=== PATIENT | male | born 1975 | race Caucasian/White ===

== ENCOUNTER 2022-10-30 11:08 | Day surgery (SDC) | payer OTHER ==
[2022-10-22 12:13] VITALS: BMI 46.0
[2022-10-30 11:44] VITALS: RESP 18
[2022-10-30 13:18] VITALS: TEMP 97.8
[2022-10-30 15:01] VITALS: BP 114/68; PULSE 78
== END 2022-10-30 13:50 | disposition home or self-care (01) ==
LOC: FASU-ENDO 11:08
PROVIDERS: ATTEND Internal Medicine Gastroenterology
PROC: 0DBL8ZX Excision of Transverse Colon, Via Natural or Artificial Opening Endoscopic, Diagnostic (ICD-10-PCS; 2022-10-30)
PROC: 0DBM8ZX Excision of Descending Colon, Via Natural or Artificial Opening Endoscopic, Diagnostic (ICD-10-PCS; 2022-10-30)
PROC: 0DBK8ZX Excision of Ascending Colon, Via Natural or Artificial Opening Endoscopic, Diagnostic (ICD-10-PCS; principal; 2022-10-30 12:49)
DX: R19.7 Diarrhea, unspecified (principal); K63.5 Polyp of colon; K63.89 Other specified diseases of intestine; K64.1 Second degree hemorrhoids
CPT/HCPCS: 88305-TC